=== PATIENT | female | born 1970 | race Caucasian/White ===

== ENCOUNTER 2020-04-19 19:12 | Inpatient (IN) | payer MEDICAID ==
[~2020-04-19] VITALS: Ht 170.2 cm; Wt 77.0 kg
[2020-04-19] MEDS ORDERED: normal saline 1000ml 1,000 ML IV ONE (19:30)
[2020-04-19] MEDS ORDERED: morphine 4 MG/ML inj SYRINge IV ONE (19:45)
[2020-04-19] MEDS ORDERED: ondansetron/PF 4mg/2ml inj IV ONE (19:45)
--- NOTE | 2020-04-19 19:45 | NUR ---
PT TO CT
[2020-04-19 19:56] LABS: BASOPHILS # (AUTO) 0.1 X10'3 (0-0.2); BASOPHILS % (AUTO) 0.7 % (0-1); EOSINOPHILS # (AUTO) 0.2 X10'3 (0-0.9); EOSINOPHILS % (AUTO) 1.9 % (0-6); HEMATOCRIT 44.6 % (35.0-45.0); HEMOGLOBIN 15.1 g/dl (12.0-16.0); LYMPHOCYTES # (AUTO) 2.5 X10'3 (1.1-4.8); LYMPHOCYTES % (AUTO) 29.8 % (21-51); MEAN CORPUSCULAR HEMOGLOBIN 30.3 PG (27.0-31.0); MEAN CORPUSCULAR HGB CONC 33.9 g/dL (33.0-36.5); MEAN CORPUSCULAR VOLUME 89.3 FL (78-98); MEAN PLATELET VOLUME 8.2 FL (7.4-10.4); MONOCYTES # (AUTO) 0.5 X10'3 (0-0.9); MONOCYTES % (AUTO) 5.8 % (2-12); NEUTROPHILS # (AUTO) 5.2 X10'3 (1.8-7.7); NEUTROPHILS % (AUTO) 61.8 % (42-75); PLATELET COUNT 261 X10'3 (140-440); RED BLOOD COUNT 4.99 X10'6 (4.20-5.60); RED CELL DISTRIBUTION WIDTH 13.2 % (11.5-14.5); WHITE BLOOD COUNT 8.4 X10'3 (4.5-11.0)
[2020-04-19 20:07] LABS: ALANINE AMINOTRANSFERASE 35 U/L (12-78); ALBUMIN 4.3 G/DL (3.4-5.0); ALBUMIN/GLOBULIN RATIO 1.1 (1.1-1.5); ALKALINE PHOSPHATASE 62 IU/L (46-116); ANION GAP 9 (8-16); ASPARTATE AMINO TRANSFERASE 18 U/L (10-37); BILIRUBIN,TOTAL 0.5 MG/DL (0.1-1.0); BLOOD UREA NITROGEN 17 MG/DL (7-18); BUN/CREATININE RATIO 19.5 (6.6-38.0); CALCIUM 10.5 MG/DL (8.5-10.1); CHLORIDE 106 MMOL/L (99-107); CREATININE 0.87 MG/DL (0.40-0.90); GLUCOSE 95 MG/DL (70-104); POTASSIUM 3.6 MMOL/L (3.5-5.1); SODIUM 144 MMOL/L (135-145); TOTAL CARBON DIOXIDE 29.1 MMOL/L (24-32); TOTAL PROTEIN 8.1 G/DL (6.4-8.2); eGFR 69 ML/MIN
[2020-04-19 20:10] LABS: LIPASE 149 U/L (73-393); TROPONIN I < 0.04 NG/ML (0.0-0.05)
[2020-04-19] MEDS ORDERED: LORazepam 2 mg/ml vial IV ONE (20:10)
[2020-04-19] MEDS ORDERED: LIDOcaine Viscous 15ml cup MM ONE (20:15)
[2020-04-19 20:30] LABS: CLARITY,URINE SLIGHTLY CLOUDY (Clear); COLOR,URINE YELLOW (Yellow); GLUCOSE, URINE NEGATIVE (Neg); KETONES,URINE NEGATIVE (Neg); LEUKOCYTE ESTERASE ,URINE TRACE (Neg); NITRITES, URINE NEGATIVE (Neg); OCCULT BLOOD,URINE NEGATIVE (Neg); PH,URINE 8.5 (4.8-8.0); PROTEIN,URINE NEGATIVE (Neg); UROBILINOGEN,URINE 0.2 E.U/dL (0.2-1.0)
[2020-04-19 20:31] LABS: UA COLLECTION TYPE CLN CATCH MIDSTREAM
[2020-04-19 20:32] LABS: URINE HCG NEGATIVE (NEG)
[2020-04-19 20:35] LABS: BACTERIA,URINE FEW /HPF (Neg); RBC,URINE NONE SEEN /HPF (0-2); SQUAMOUS EPITHELIAL CELL,UR FEW /LPF (FEW); WBC,URINE 0-4 /HPF (0-4)
[2020-04-19] MEDS ORDERED: SERT100T PO (20:41)
[2020-04-19] MEDS ORDERED: LIDOcaine 2% 10ml TOPICAL JELLY (Urojet) MM ONE (22:20)
[2020-04-19] MEDS ORDERED: morphine 2 MG/ML inj. syringe IV PRN (22:30)
[2020-04-19] MEDS ORDERED: potassium CL 10mEq/100ml bag 100 ML IV PRN ×2 (22:30)
[2020-04-19] MEDS ORDERED: ondansetron/PF 4mg/2ml inj IV PRN (22:30)
[2020-04-19] MEDS ORDERED: LIDOcaine 2% 10ml TOPICAL JELLY (Urojet) ONE (22:37)
[2020-04-19] MEDS: normal saline 1000ml 1,000 ML IV SCH (23:16)
--- NOTE | 2020-04-20 00:45 | NUR ---
Received report from Cat RN in the ER. Patient arrived at 0100 on gurney, then walked 10 feet to her bed. room air, a/o, vss, no signs of distress will continue to monitor
[2020-04-20 01:00] VITALS: BP 148/73
[2020-04-20] MEDS: Chloraseptic (Phenol) Spray 177ml MM PRN ×2 (02:38→09:59)
--- NOTE | 2020-04-20 05:57 | NUR ---
Problems reprioritized. Patient report given, questions answered & plan of care reviewed with Hitesh OJEDA.
--- NOTE | 2020-04-20 06:00 | NUR ---
Patient in room [id number]. I have received report from RUSTY Escobar and had the opportunity to ask questions and assume patient care.
[2020-04-20 06:59] LABS: BASOPHILS % (AUTO) 0.3 % (0-1); EOSINOPHILS # (AUTO) 0.1 X10'3 (0-0.9); EOSINOPHILS % (AUTO) 1.5 % (0-6); HEMATOCRIT 39.5 % (35.0-45.0); HEMOGLOBIN 13.2 g/dl (12.0-16.0); LYMPHOCYTES % (AUTO) 30.4 % (21-51); MEAN CORPUSCULAR HEMOGLOBIN 30.5 PG (27.0-31.0); MEAN CORPUSCULAR HGB CONC 33.5 g/dL (33.0-36.5); MEAN CORPUSCULAR VOLUME 90.9 FL (78-98); MEAN PLATELET VOLUME 8.1 FL (7.4-10.4); MONOCYTES # (AUTO) 0.5 X10'3 (0-0.9); MONOCYTES % (AUTO) 6.9 % (2-12); NEUTROPHILS % (AUTO) 60.9 % (42-75); PLATELET COUNT 221 X10'3 (140-440); RED BLOOD COUNT 4.34 X10'6 (4.20-5.60); RED CELL DISTRIBUTION WIDTH 13.1 % (11.5-14.5); WHITE BLOOD COUNT 6.6 X10'3 (4.5-11.0)
[2020-04-20 07:23] LABS: ALANINE AMINOTRANSFERASE 29 U/L (12-78); ALBUMIN 3.4 G/DL (3.4-5.0); ALBUMIN/GLOBULIN RATIO 1.1 (1.1-1.5); ALKALINE PHOSPHATASE 52 IU/L (46-116); ANION GAP 8 (8-16); ASPARTATE AMINO TRANSFERASE 12 U/L (10-37); BILIRUBIN,TOTAL 0.3 MG/DL (0.1-1.0); BLOOD UREA NITROGEN 14 MG/DL (7-18); BUN/CREATININE RATIO 19.2 (6.6-38.0); CALCIUM 8.5 MG/DL (8.5-10.1); CHLORIDE 111 MMOL/L (99-107); CREATININE 0.73 MG/DL (0.40-0.90); GLUCOSE 97 MG/DL (70-104); POTASSIUM 3.9 MMOL/L (3.5-5.1); SODIUM 145 MMOL/L (135-145); TOTAL CARBON DIOXIDE 25.9 MMOL/L (24-32); TOTAL PROTEIN 6.5 G/DL (6.4-8.2); eGFR 84 ML/MIN
[2020-04-20 08:00] VITALS: BP 124/89
[2020-04-20] MEDS: K and/or MAG REPLACEMENT MC SCH ×2 (08:00→20:00)
[2020-04-20] MEDS: heparin, porcine 5000 units/ml vial SQ SCH ×2 (09:46→19:47)
[2020-04-20] MEDS: normal saline 1000ml 1,000 ML IV SCH ×2 (09:46→18:33)
[2020-04-20] MEDS: morphine 2 MG/ML inj. syringe IV PRN ×2 (10:00→19:46)
[2020-04-20 12:41] VITALS: BP 136/77
[2020-04-20 18:00] VITALS: BP 132/78
--- NOTE | 2020-04-20 18:23 | NUR ---
Problems reprioritized. Patient report given, questions answered & plan of care reviewed with RUTSY Neely.
--- NOTE | 2020-04-20 18:32 | NUR ---
Patient in room [id number]. I have received report from RUSTY Montiel and had the opportunity to ask questions and assume patient care.
[2020-04-20] MEDS: diatr meglu/diatrizoate 30ml oral sol.-(3 dose) bottle PO SCH (21:26)
[2020-04-21 00:39] VITALS: BP 120/77
[2020-04-21] MEDS: normal saline 1000ml 1,000 ML IV SCH ×2 (04:27→05:37)
[2020-04-21 05:08] LABS: BASOPHILS % (AUTO) 0.3 % (0-1); EOSINOPHILS # (AUTO) 0.1 X10'3 (0-0.9); EOSINOPHILS % (AUTO) 2.2 % (0-6); HEMATOCRIT 38.7 % (35.0-45.0); LYMPHOCYTES % (AUTO) 32.1 % (21-51); MEAN CORPUSCULAR HEMOGLOBIN 30.3 PG (27.0-31.0); MEAN CORPUSCULAR HGB CONC 33.5 g/dL (33.0-36.5); MEAN CORPUSCULAR VOLUME 90.3 FL (78-98); MEAN PLATELET VOLUME 8.2 FL (7.4-10.4); MONOCYTES # (AUTO) 0.3 X10'3 (0-0.9); MONOCYTES % (AUTO) 4.9 % (2-12); NEUTROPHILS # (AUTO) 3.7 X10'3 (1.8-7.7); NEUTROPHILS % (AUTO) 60.5 % (42-75); PLATELET COUNT 204 X10'3 (140-440); RED BLOOD COUNT 4.29 X10'6 (4.20-5.60); RED CELL DISTRIBUTION WIDTH 12.9 % (11.5-14.5); WHITE BLOOD COUNT 6.1 X10'3 (4.5-11.0)
[2020-04-21 05:18] LABS: ALANINE AMINOTRANSFERASE 26 U/L (12-78); ALBUMIN 3.2 G/DL (3.4-5.0); ALKALINE PHOSPHATASE 46 IU/L (46-116); ANION GAP 9 (8-16); ASPARTATE AMINO TRANSFERASE 19 U/L (10-37); BILIRUBIN,TOTAL 0.5 MG/DL (0.1-1.0); BLOOD UREA NITROGEN 9 MG/DL (7-18); BUN/CREATININE RATIO 13.8 (6.6-38.0); CALCIUM 8.2 MG/DL (8.5-10.1); CHLORIDE 110 MMOL/L (99-107); CREATININE 0.65 MG/DL (0.40-0.90); GLUCOSE 89 MG/DL (70-104); POTASSIUM 3.6 MMOL/L (3.5-5.1); SODIUM 145 MMOL/L (135-145); TOTAL CARBON DIOXIDE 26.2 MMOL/L (24-32); TOTAL PROTEIN 6.4 G/DL (6.4-8.2); eGFR > 90 ML/MIN
--- NOTE | 2020-04-21 05:54 | NUR ---
Problems reprioritized. Patient report given, questions answered & plan of care reviewed with RUSTY Montiel.
[2020-04-21] MEDS: diatr meglu/diatrizoate 30ml oral sol.-(3 dose) bottle PO SCH ×2 (07:00→08:58)
[2020-04-21] MEDS: heparin, porcine 5000 units/ml vial SQ SCH (07:01)
[2020-04-21] MEDS: K and/or MAG REPLACEMENT MC SCH (08:00)
[2020-04-21] MEDS ORDERED: iohexol 300mg/ml 100ml inj. ONE (08:19)
[2020-04-21 09:19] VITALS: BP 124/80
[2020-04-21 11:28] VITALS: BP 118/72
--- NOTE | 2020-04-21 14:25 | NUR ---
Patient discharged home into the care of . Patient alert, oriented and appropriate for discharge. Patient left with all belongings. Patient verbalized understanding of discharge instructions and will follow up with primary care provider within one week. Patient IV removed. Patient not on tele. Patient had no new medications.
== END 2020-04-21 14:26 | disposition home or self-care (01) | DRG 247 ==
LOC: ER 19:13 → ED HOLD 22:27 → SUR 3N 04-20 00:55
PROVIDERS: ADMIT Internal Medicine; ATTEND Family Medicine
PROC: 0D9670Z Drainage of Stomach with Drainage Device, Via Natural or Artificial Opening (ICD-10-PCS; principal; 2020-04-20)
DX: K56.609 Unspecified intestinal obstruction, unspecified as to partial versus complete obstruction (principal); C50.919 Malignant neoplasm of unspecified site of unspecified female breast; F32.9 Major depressive disorder, single episode, unspecified; Z79.899 Other long term (current) drug therapy
CPT/HCPCS: 36415; 71045; 74176; 74177; 80053; 81001; 81025; 82948; 83605; 83690; 84145; 84484; 85025; 87040; 87081; 87088; 96361; 96374; 96375; 99285; G0378; J1644; J2060; J2270; J2405; J7030; Q9963; Q9967

== ENCOUNTER 2023-08-02 14:30 | Emergency (ER) | payer MEDICAID ==
[~2023-08-02] VITALS: Ht 165.1 cm; Wt 62.7 kg
[~2023-08-02 14:30] MED LIST: SERT100T PO
[2023-08-02 14:37] VITALS: BP 148/95; PULSE 66; RESP 18; TEMP 98.9; O2SAT 98
[2023-08-02] MEDS ORDERED: naproxen 500mg tablet PO ONE (20:45)
== END 2023-08-02 21:20 | disposition home or self-care (01) ==
LOC: ER 14:30
DX: M67.431 Ganglion, right wrist (principal); Z85.3 Personal history of malignant neoplasm of breast
CPT/HCPCS: 73130; 99283